=== PATIENT | male | born 1955 | race Caucasian/White ===

== ENCOUNTER 2017-07-01 16:17 | Inpatient (IN) | payer BC ==
[~2017-07-01] VITALS: Ht 167.6 cm; Wt 91.2 kg
[2017-07-01] MEDS ORDERED: METF500T4 PO (16:32)
[2017-07-01 16:42] LABS: GLUCOSE,POINT OF CARE 282 MG/DL (70-110)
[2017-07-01] MEDS ORDERED: SODIUM CHLORIDE 0.9% 1,000 ML IV ONE (17:00)
[2017-07-01] MEDS ORDERED: INSULIN REGULAR, HUMAN 100 UNITS/ML IVP ONE (17:00)
[2017-07-01] MEDS ORDERED: VANCOMYCIN HCL 1 GM/D5% WATER 200 ML IV ONE (17:00)
[2017-07-01 17:21] LABS: BASOPHILS % (AUTO) 0.3 % (0.0-2.0); HEMATOCRIT 40.9 % (41-53); HEMOGLOBIN 13.9 g/dL (13.5-17.5); LYMPHOCYTES # (AUTO) 1.2 K/uL (1.0-4.8); LYMPHOCYTES % (AUTO) 11.3 % (22.0-44.0); MEAN CORPUSCULAR HGB CONC 33.9 G/dL (31.0-37.0); MEAN CORPUSCULAR VOLUME 83 fL (80-100); MONOCYTES # (AUTO) 0.8 K/uL (0.1-1.0); MONOCYTES % (AUTO) 7.2 % (2.0-9.0); NEUTROPHILS # (AUTO) 8.5 K/uL (1.8-7.7); NEUTROPHILS % (AUTO) 78.2 % (40.0-70.0); PLATELET COUNT (AUTO) 274 K/uL (150-450); RED BLOOD CELL COUNT(AUTO) 4.96 MIL/uL (4.50-5.90); RED CELL DISTRIBUTION WIDTH 13.7 % (11.5-14.5); WHITE BLOOD COUNT (AUTO) 10.9 K/uL (4.5-11.0)
[2017-07-01 17:30] LABS: CALCIUM, TOTAL 9.1 mg/dL (8.8-10.5); CREATININE 1.41 mg/dL (0.60-1.30)
[2017-07-01 17:33] LABS: ALBUMIN 3.6 g/dL (3.4-5.0); BILIRUBIN,TOTAL 0.5 mg/dL (0.1-1.0); TOTAL PROTEIN, SERUM 8.4 g/dL (6.4-8.2)
[2017-07-01] MEDS ORDERED: INSULIN ASPART 100 UNITS/ML SQ PRN (18:00)
[2017-07-01] MEDS ORDERED: DEXTROSE 50%-WATER 25 GM/50 ML SYRINGE IVP PRN (18:00)
[2017-07-01] MEDS ORDERED: ONDANSETRON HCL 4 MG/2 ML VIAL IVP PRN (18:00)
[2017-07-01] MEDS ORDERED: 0.9% SODIUM CHLORIDE 10 ML SYRINGE IVP PRN (18:00)
[2017-07-01 18:40] VITALS: BP 141/78
[2017-07-01 19:02] LABS: GLUCOSE,POINT OF CARE 155 MG/DL (70-110)
[2017-07-01] MEDS: ACETAMINOPHEN 325 MG TABLET PO PRN (19:31)
[2017-07-01] MEDS ORDERED: ZOLPIDEM TARTRATE 5 MG TABLET PO PRN (20:15)
[2017-07-01] MEDS: TraMADol HCL 50 MG TABLET PO PRN (21:33)
[2017-07-01] MEDS ORDERED: PNEUMOCOCCAL VACCINE POLYVALENT 0.5 ML VIAL [PPSV23] IM ONE (22:15)
[2017-07-02] VITALS (7 sets, daily range): BP systolic 109–143; BP diastolic 56–84
[2017-07-02] MEDS: ACETAMINOPHEN 325 MG TABLET PO PRN (00:11)
[2017-07-02 01:44] LABS: APPEARANCE,URINE CLEAR (CLEAR); GLUCOSE, URINE (UA) NEGATIVE (NEGATIVE); KETONES,URINE NEGATIVE (NEGATIVE); LEUKOCYTE ESTERASE ,URINE NEGATIVE (NEGATIVE); OCCULT BLOOD,URINE NEGATIVE (NEGATIVE); PH,URINE 5.5 (5.0-8.0); PROTEIN,URINE TRACE (NEGATIVE)
[2017-07-02 03:13] LABS: RBC,URINE 0-2 /HPF (0-2); SQUAMOUS EPITHELIAL CELL,UR Few /LPF (None Seen); WBC,URINE 0-2 /HPF (0-5)
[2017-07-02 06:12] LABS: PROTHROMBIN TIME 10.4 SEC (9.4-11.6)
[2017-07-02 06:46] LABS: ALBUMIN 2.9 g/dL (3.4-5.0); BILIRUBIN,TOTAL 0.2 mg/dL (0.1-1.0); CALCIUM, TOTAL 8.4 mg/dL (8.8-10.5); CHOL/HDL RATIO 5.4 (4.2-7.3); CREATININE 1.32 mg/dL (0.60-1.30); MAGNESIUM 1.7 mg/dL (1.80-2.40); PHOSPHORUS 3.5 mg/dL (2.5-4.9); POTASSIUM 3.3 mmol/L (3.5-5.1); THYROID STIMULATING HORMONE 2.92 uIU/mL (0.36-3.74); TOTAL PROTEIN, SERUM 6.8 g/dL (6.4-8.2)
[2017-07-02 06:54] LABS: BASOPHILS % (AUTO) 0.8 % (0.0-2.0); EOSINOPHILS % (AUTO) 5.5 % (1.0-6.0); HEMATOCRIT 36.6 % (41-53); HEMOGLOBIN 12.5 g/dL (13.5-17.5); LYMPHOCYTES # (AUTO) 1.5 K/uL (1.0-4.8); LYMPHOCYTES % (AUTO) 19.4 % (22.0-44.0); MEAN CORPUSCULAR HEMOGLOBIN 28.3 pg (26.0-34.0); MEAN CORPUSCULAR HGB CONC 34.3 G/dL (31.0-37.0); MEAN CORPUSCULAR VOLUME 82 fL (80-100); MONOCYTES # (AUTO) 0.6 K/uL (0.1-1.0); MONOCYTES % (AUTO) 8.3 % (2.0-9.0); PLATELET COUNT (AUTO) 227 K/uL (150-450); RED BLOOD CELL COUNT(AUTO) 4.44 MIL/uL (4.50-5.90); RED CELL DISTRIBUTION WIDTH 13.6 % (11.5-14.5); WHITE BLOOD COUNT (AUTO) 7.6 K/uL (4.5-11.0)
[2017-07-02] MEDS: VANCOMYCIN HCL 1 GM/D5% WATER 200 ML IV SCH ×2 (07:43→20:07)
[2017-07-02] MEDS: PANTOPRAZOLE SODIUM 40 MG DR TABLET PO SCH (08:00)
[2017-07-02] MEDS: SIMVASTATIN 20 MG TABLET PO SCH (08:00)
[2017-07-02] MEDS: LOSARTAN POTASSIUM 50 MG TABLET PO SCH (08:00)
[2017-07-02] MEDS: ENOXAPARIN SODIUM 30 MG/0.3 ML PF SYRINGE SQ SCH (08:01)
[2017-07-02 08:05] LABS: ERYTHROCYTE SEDIMENTATION RATE 61 MM/HR (0-15)
[2017-07-02] MEDS: INSULIN DETEMIR 100 UNITS/ML SQ SCH ×2 (08:06→20:56)
[2017-07-02] MEDS ORDERED: PANTOPRAZOLE SODIUM 40 MG DR TABLET PO SCH (09:00)
[2017-07-02 10:12] LABS: GLUCOSE COMMENT 1 Received Meds; GLUCOSE,POINT OF CARE 149 MG/DL (70-110)
[2017-07-02 10:19] LABS: GLUCOSE,POINT OF CARE 131 MG/DL (70-110)
[2017-07-02 10:19] LABS: GLUCOSE COMMENT 1 Received Meds; GLUCOSE,POINT OF CARE 185 MG/DL (70-110)
[2017-07-02] MEDS: TraMADol HCL 50 MG TABLET PO PRN ×2 (10:49→22:42)
[2017-07-02] MEDS ORDERED: DEXTROSE 50%-WATER 25 GM/50 ML SYRINGE IVP PRN (11:45)
[2017-07-02] MEDS: INSULIN ASPART 100 UNITS/ML SQ PRN ×3 (12:00→20:57)
[2017-07-02 14:02] LABS: GLUCOSE COMMENT 1 Received Meds; GLUCOSE,POINT OF CARE 180 MG/DL (70-110)
[2017-07-02 18:02] LABS: GLUCOSE COMMENT 1 Received Meds; GLUCOSE,POINT OF CARE 152 MG/DL (70-110)
[2017-07-02] MEDS ORDERED: POTASSIUM CHLORIDE 20 MEQ ER TABLET PO ONE (19:45)
[2017-07-02] MEDS ORDERED: MAGNESIUM SULFATE 1 GM in DEXTROSE 5%-WATER 50 ML IV ONE (20:00)
[2017-07-03 00:47] LABS: GLUCOSE COMMENT 1 Received Meds; GLUCOSE,POINT OF CARE 160 MG/DL (70-110)
[2017-07-03 04:40] VITALS: BP 112/68
[2017-07-03 06:23] LABS: GLUCOSE,POINT OF CARE 121 MG/DL (70-110)
[2017-07-03 06:50] LABS: ANION GAP 7 mmol/L (8-16); CALCIUM, TOTAL 9.1 mg/dL (8.8-10.5); CARBON DIOXIDE 30 mmol/L (22-29); CHLORIDE 102 mmol/L (98-107); CREATININE 1.19 mg/dL (0.60-1.30); GLOMERULAR FILTR. RATE CALC > 60 mL/min (>60); POTASSIUM 4.3 mmol/L (3.5-5.1); SODIUM SERUM 139 mmol/L (136-145); UREA NITROGEN, BLOOD 10 mg/dL (7-18)
[2017-07-03 07:48] VITALS: BP 147/72
[2017-07-03 07:55] LABS: HEPATITIS C AB SCREEN <0.1 s/co ratio (0.0-0.9)
[2017-07-03] MEDS ORDERED: VANCOMYCIN HCL 1.25 GM in DEXTROSE 5%-WATER 250 ML IV SCH (08:00)
[2017-07-03 08:07] LABS: PSA FREE 0.04 ng/mL
[2017-07-03] MEDS: PANTOPRAZOLE SODIUM 40 MG DR TABLET PO SCH (08:07)
[2017-07-03] MEDS: LOSARTAN POTASSIUM 50 MG TABLET PO SCH (08:07)
[2017-07-03] MEDS: SIMVASTATIN 20 MG TABLET PO SCH (08:07)
[2017-07-03] MEDS: ENOXAPARIN SODIUM 30 MG/0.3 ML PF SYRINGE SQ SCH (08:08)
[2017-07-03] MEDS: INSULIN DETEMIR 100 UNITS/ML SQ SCH (08:16)
[2017-07-03 08:22] LABS: GLUCOSE COMMENT 1 Received Meds; GLUCOSE,POINT OF CARE 120 MG/DL (70-110)
[2017-07-03 11:17] VITALS: BP 159/94
[2017-07-03] MEDS: TraMADol HCL 50 MG TABLET PO PRN (11:41)
[2017-07-03 11:53] LABS: GLUCOSE COMMENT 1 Received Meds; GLUCOSE,POINT OF CARE 172 MG/DL (70-110)
[2017-07-03] MEDS: INSULIN ASPART 100 UNITS/ML SQ PRN (12:04)
== END 2017-07-03 14:55 | disposition short-term general hospital (02) | DRG 603 ==
LOC: EMS 16:19 → 6N 17:12
PROVIDERS: ADMIT Internal Medicine; ATTEND Internal Medicine
DX: L03.116 Cellulitis of left lower limb (principal); E11.22 Type 2 diabetes mellitus with diabetic chronic kidney disease; R78.81 Bacteremia; I13.10 Hypertensive heart and chronic kidney disease without heart failure, with stage 1 through stage 4 chronic kidney disease, or unspecified chronic kidney disease; E11.42 Type 2 diabetes mellitus with diabetic polyneuropathy; E11.621 Type 2 diabetes mellitus with foot ulcer; L97.529 Non-pressure chronic ulcer of other part of left foot with unspecified severity; E11.65 Type 2 diabetes mellitus with hyperglycemia; E55.9 Vitamin D deficiency, unspecified; E78.2 Mixed hyperlipidemia; M19.90 Unspecified osteoarthritis, unspecified site; N18.9 Chronic kidney disease, unspecified; Z83.3 Family history of diabetes mellitus; Z22.322 Carrier or suspected carrier of Methicillin resistant Staphylococcus aureus
CPT/HCPCS: 73718; 82306; 82607; 82746; 82962; 83036; 83735; 84100; 84154; 84443; 85651; 86140; 86706; 86803; 87040; 87070; 87081; 87147; 87205; 87340; 96365; 96375; 99285; J1650; J1815; J3370; J3475; J7030; J7060

== ENCOUNTER 2017-08-12 02:42 | Inpatient (IN) | payer BC ==
[~2017-08-12] VITALS: Ht 175.3 cm; Wt 81.5 kg
[~2017-08-12 02:42] MED LIST: METF500T4 PO
[2017-08-12] MEDS ORDERED: GABA-531 PO (02:55)
[2017-08-12] MEDS ORDERED: HYDR-4061 PO (02:55)
[2017-08-12] MEDS ORDERED: LISI-660 PO (02:55)
[2017-08-12] MEDS ORDERED: SULF1TAB42 PO (02:55)
[2017-08-12 02:57] LABS: GLUCOSE,POINT OF CARE 213 MG/DL (70-110)
[2017-08-12] MEDS ORDERED: VANCOMYCIN HCL 1 GM/D5% WATER 200 ML IV ONE (04:30)
[2017-08-12] MEDS ORDERED: PIPERACILLIN/TAZO 3.375 GM/D5W 50 ML IV ONE (04:30)
[2017-08-12] MEDS ORDERED: MORPHINE SULFATE 4 MG/ML SYRINGE IVP ONE (04:30)
[2017-08-12] MEDS ORDERED: ONDANSETRON HCL 4 MG/2 ML VIAL IVP ONE (04:30)
[2017-08-12] MEDS ORDERED: KETOROLAC TROMETHAMINE 30 MG/ML VIAL IVP ONE (05:00)
[2017-08-12] MEDS ORDERED: HYDROmorphone 2 MG/ML SYRINGE IVP ONE (05:00)
[2017-08-12 05:04] LABS: BASOPHILS % (AUTO) 0.7 % (0.0-2.0); EOSINOPHILS % (AUTO) 7.5 % (1.0-6.0); HEMATOCRIT 33.8 % (41-53); HEMOGLOBIN 11.6 g/dL (13.5-17.5); LYMPHOCYTES # (AUTO) 1.7 K/uL (1.0-4.8); LYMPHOCYTES % (AUTO) 22.7 % (22.0-44.0); MEAN CORPUSCULAR HGB CONC 34.3 G/dL (31.0-37.0); MEAN CORPUSCULAR VOLUME 82 fL (80-100); MONOCYTES # (AUTO) 0.6 K/uL (0.1-1.0); MONOCYTES % (AUTO) 7.5 % (2.0-9.0); NEUTROPHILS # (AUTO) 4.7 K/uL (1.8-7.7); NEUTROPHILS % (AUTO) 61.6 % (40.0-70.0); PLATELET COUNT (AUTO) 287 K/uL (150-450); RED BLOOD CELL COUNT(AUTO) 4.14 MIL/uL (4.50-5.90); RED CELL DISTRIBUTION WIDTH 13.7 % (11.5-14.5); WHITE BLOOD COUNT (AUTO) 7.7 K/uL (4.5-11.0)
[2017-08-12 05:09] LABS: CALCIUM, TOTAL 8.9 mg/dL (8.8-10.5); CREATININE 1.27 mg/dL (0.60-1.30); POTASSIUM 3.8 mmol/L (3.5-5.1)
[2017-08-12 05:15] LABS: ALBUMIN 3.2 g/dL (3.4-5.0); BILIRUBIN,TOTAL 0.2 mg/dL (0.1-1.0)
[2017-08-12 06:10] LABS: ERYTHROCYTE SEDIMENTATION RATE 75 MM/HR (0-15)
[2017-08-12] MEDS ORDERED: ACETAMINOPHEN 325 MG TABLET PO PRN (06:15)
[2017-08-12] MEDS ORDERED: ZOLPIDEM TARTRATE 5 MG TABLET PO PRN (06:15)
[2017-08-12] MEDS ORDERED: MORPHINE SULFATE 4 MG/ML SYRINGE IVP PRN (06:15)
[2017-08-12] MEDS ORDERED: MAGNESIUM HYDROXIDE SUSPENSION 30 ML UDCUP PO PRN ×2 (06:15→17:30)
[2017-08-12] MEDS ORDERED: HYDROCODONE/ACETAMINOPHEN 5-325 MG TABLET PO PRN (06:15)
[2017-08-12] MEDS ORDERED: LISINOPRIL 10 MG TABLET PO ONE (07:00)
[2017-08-12 07:33] LABS: GLUCOSE,POINT OF CARE 137 MG/DL (70-110)
[2017-08-12 07:58] VITALS: BP 147/97
[2017-08-12] MEDS ORDERED: DOCUSATE SODIUM 100 MG CAPSULE PO SCH (09:00)
[2017-08-12] MEDS ORDERED: ENOXAPARIN SODIUM 40 MG/0.4 ML PF SYRINGE SQ SCH (09:00)
[2017-08-12] MEDS ORDERED: PANTOPRAZOLE SODIUM 40 MG/VIAL IVP SCH (09:00)
[2017-08-12] MEDS: MetFORMIN HCL 500 MG TABLET PEG SCH ×2 (09:17→17:52)
[2017-08-12] MEDS: GABAPENTIN 300 MG CAPSULE PO SCH ×2 (09:17→16:32)
[2017-08-12 11:04] VITALS: BP 112/53
[2017-08-12 12:18] LABS: GLUCOSE,POINT OF CARE 154 MG/DL (70-110)
[2017-08-12] MEDS ORDERED: PIPERACILLIN/TAZO 3.375 GM/D5W 50 ML IV SCH (14:00)
[2017-08-12] MEDS ORDERED: SODIUM CHLORIDE 0.9% 500 ML IV ONE (14:23)
[2017-08-12] MEDS ORDERED: INFLUENZA VIRUS VACCINE QVS 2017-18 (3YR+)/PF 60 MCG/0.5 ML SYRINGE IM ONE (15:30)
[2017-08-12 16:00] VITALS: BP 139/76
[2017-08-12] MEDS ORDERED: MAGNESIUM SULFATE 2 GM in DEXTROSE 5%-WATER 50 ML IV PRN (17:30)
[2017-08-12] MEDS ORDERED: ACETAMINOPHEN 650 MG/20.3 ML SOLUTION UDCUP PO PRN (17:30)
[2017-08-12] MEDS ORDERED: POTASSIUM CHL 10 MEQ/WATER 50 ML IV PRN (17:30)
[2017-08-12] MEDS ORDERED: DEXTROSE 50%-WATER 25 GM/50 ML SYRINGE IVP PRN (17:30)
[2017-08-12] MEDS ORDERED: POTASSIUM CHLORIDE 20 MEQ ER TABLET PO PRN (17:30)
[2017-08-12] MEDS ORDERED: 0.9% SODIUM CHLORIDE 10 ML SYRINGE IVP PRN (17:30)
[2017-08-12] MEDS ORDERED: ONDANSETRON HCL 4 MG/2 ML VIAL IVP PRN (17:30)
[2017-08-12] MEDS: OxyCODONE HCL/ACETAMINOPHEN 5-325 MG TABLET PO PRN (17:52)
[2017-08-12 18:23] LABS: GLUCOSE,POINT OF CARE 88 MG/DL (70-110)
[2017-08-12 18:45] LABS: BASOPHILS % (AUTO) 0.3 % (0.0-2.0); EOSINOPHILS % (AUTO) 3.7 % (1.0-6.0); HEMATOCRIT 38.1 % (41-53); HEMOGLOBIN 12.7 g/dL (13.5-17.5); LYMPHOCYTES # (AUTO) 1.2 K/uL (1.0-4.8); LYMPHOCYTES % (AUTO) 9.3 % (22.0-44.0); MEAN CORPUSCULAR HEMOGLOBIN 27.8 pg (26.0-34.0); MEAN CORPUSCULAR HGB CONC 33.4 G/dL (31.0-37.0); MEAN CORPUSCULAR VOLUME 83 fL (80-100); MONOCYTES # (AUTO) 0.6 K/uL (0.1-1.0); NEUTROPHILS # (AUTO) 10.1 K/uL (1.8-7.7); NEUTROPHILS % (AUTO) 81.7 % (40.0-70.0); PLATELET COUNT (AUTO) 314 K/uL (150-450); RED BLOOD CELL COUNT(AUTO) 4.58 MIL/uL (4.50-5.90); RED CELL DISTRIBUTION WIDTH 13.9 % (11.5-14.5); WHITE BLOOD COUNT (AUTO) 12.4 K/uL (4.5-11.0)
[2017-08-12 18:51] LABS: ALBUMIN 3.4 g/dL (3.4-5.0); CALCIUM, TOTAL 8.7 mg/dL (8.8-10.5); CREATININE 1.62 mg/dL (0.60-1.30); POTASSIUM 4.9 mmol/L (3.5-5.1)
[2017-08-12 19:22] VITALS: BP 121/75
[2017-08-12 20:16] LABS: ERYTHROCYTE SEDIMENTATION RATE 82 MM/HR (0-15)
[2017-08-12] MEDS: HYDROCODONE/ACETAMINOPHEN 5-325 MG TABLET PO PRN (20:51)
[2017-08-12] MEDS: DOCUSATE SODIUM 100 MG CAPSULE PO SCH (20:51)
[2017-08-12] MEDS: HEPARIN SODIUM,PORCINE 5,000 UNITS/ML VIAL SQ SCH (20:52)
[2017-08-12] MEDS: INSULIN REGULAR, HUMAN 100 UNITS/ML SQ PRN (20:59)
[2017-08-12 22:03] LABS: GLUCOSE,POINT OF CARE 144 MG/DL (70-110)
[2017-08-12 23:11] VITALS: BP 114/68
[2017-08-13] MEDS ORDERED: HEPARIN SODIUM,PORCINE 5,000 UNITS/ML VIAL SQ SCH
[2017-08-13 04:00] VITALS: BP 119/60
[2017-08-13] MEDS ORDERED: VANCOMYCIN HCL 1 GM/D5% WATER 200 ML IV ONE (06:00)
[2017-08-13 08:02] VITALS: BP 117/71
[2017-08-13] MEDS ORDERED: GADOBUTROL 1 MMOL/ML 10 ML VIAL IVP ONE (08:30)
[2017-08-13 09:40] LABS: BASOPHILS # (AUTO) 0.02 K/uL (0.00-0.20); BASOPHILS % (AUTO) 0.2 % (0.0-2.0); EOSINOPHILS # (AUTO) 0.56 K/uL (0.00-0.70); EOSINOPHILS % (AUTO) 6.27 % (1.0-6.0); HEMATOCRIT 35.9 % (41-53); LYMPHOCYTES # (AUTO) 0.8 K/uL (1.0-4.8); LYMPHOCYTES % (AUTO) 8.5 % (22.0-44.0); MEAN CORPUSCULAR HEMOGLOBIN 27.7 pg (26.0-34.0); MEAN CORPUSCULAR HGB CONC 33.3 G/dL (31.0-37.0); MEAN CORPUSCULAR VOLUME 83 fL (80-100); MONOCYTES # (AUTO) 0.4 K/uL (0.1-1.0); MONOCYTES % (AUTO) 4.2 % (2.0-9.0); NEUTROPHILS # (AUTO) 7.2 K/uL (1.8-7.7); NEUTROPHILS % (AUTO) 80.8 % (40.0-70.0); PLATELET COUNT (AUTO) 253 K/uL (150-450); RED BLOOD CELL COUNT(AUTO) 4.33 MIL/uL (4.50-5.90); RED CELL DISTRIBUTION WIDTH 13.8 % (11.5-14.5)
[2017-08-13 09:50] LABS: HEMOGLOBIN A1C 7.3 % (4.5-6.2)
[2017-08-13 09:56] LABS: BILIRUBIN,TOTAL 0.3 mg/dL (0.1-1.0); CALCIUM, TOTAL 8.8 mg/dL (8.8-10.5); CHOL/HDL RATIO 6.6 (4.2-7.3); CREATININE 1.53 mg/dL (0.60-1.30); MAGNESIUM 1.6 mg/dL (1.80-2.40); POTASSIUM 4.4 mmol/L (3.5-5.1); TOTAL PROTEIN, SERUM 7.8 g/dL (6.4-8.2)
[2017-08-13] MEDS: DOCUSATE SODIUM 100 MG CAPSULE PO SCH ×2 (09:57→21:19)
[2017-08-13] MEDS: HEPARIN SODIUM,PORCINE 5,000 UNITS/ML VIAL SQ SCH ×2 (09:57→21:18)
[2017-08-13] MEDS: OxyCODONE HCL/ACETAMINOPHEN 5-325 MG TABLET PO PRN ×3 (09:57→21:19)
[2017-08-13] MEDS: MAGNESIUM OXIDE 400 MG TABLET PO PRN ×3 (11:30→21:19)
[2017-08-13 12:04] VITALS: BP 135/80
[2017-08-13] MEDS: HYDROCODONE/ACETAMINOPHEN 5-325 MG TABLET PO PRN (13:35)
[2017-08-13 15:00] VITALS: BP 132/76
[2017-08-13 17:38] LABS: GLUCOSE,POINT OF CARE 108 MG/DL (70-110)
[2017-08-13 17:46] LABS: APPEARANCE,URINE CLEAR (CLEAR); GLUCOSE, URINE (UA) NEGATIVE (NEGATIVE); KETONES,URINE NEGATIVE (NEGATIVE); LEUKOCYTE ESTERASE ,URINE NEGATIVE (NEGATIVE); OCCULT BLOOD,URINE NEGATIVE (NEGATIVE); PROTEIN,URINE NEGATIVE (NEGATIVE)
[2017-08-13 17:55] LABS: SQUAMOUS EPITHELIAL CELL,UR Few /LPF (None Seen)
[2017-08-13 17:56] LABS: COARSE GRANULAR CASTS,URINE 0-2 /LPF (None Seen)
[2017-08-13 17:58] LABS: RBC,URINE 0-2 /HPF (0-2); WBC,URINE 0-2 /HPF (0-5)
[2017-08-13] MEDS ORDERED: PIPERACILLIN/TAZO 3.375 GM/D5W 50 ML IV SCH ×2 (18:00→23:00)
[2017-08-13 19:57] VITALS: BP 114/69
[2017-08-13 21:17] LABS: GLUCOSE,POINT OF CARE 120 MG/DL (70-110)
[2017-08-13] MEDS ORDERED: VANCOMYCIN HCL 1.5 GM in DEXTROSE 5%-WATER 250 ML IV ONE (23:00)
[2017-08-13 23:16] VITALS: BP 129/83
[2017-08-14 01:12] LABS: GLUCOSE COMMENT 1 Juice/Food/D50 Given; GLUCOSE,POINT OF CARE 141 MG/DL (70-110)
[2017-08-14] MEDS: OxyCODONE HCL/ACETAMINOPHEN 5-325 MG TABLET PO PRN ×3 (01:26→17:39)
[2017-08-14 05:23] VITALS: BP 131/75
[2017-08-14 06:00] LABS: CREATININE 1.43 mg/dL (0.60-1.30); POTASSIUM 4.8 mmol/L (3.5-5.1)
[2017-08-14 06:22] LABS: PROCALCITONIN (PCT) 0.08 ng/mL (<0.50)
[2017-08-14 07:08] LABS: GLUCOSE COMMENT 1 Juice/Food/D50 Given; GLUCOSE,POINT OF CARE 120 MG/DL (70-110)
[2017-08-14 07:36] VITALS: BP 138/59
[2017-08-14] MEDS: HEPARIN SODIUM,PORCINE 5,000 UNITS/ML VIAL SQ SCH (08:07)
[2017-08-14] MEDS: VANCOMYCIN HCL 750 MG in DEXTROSE 5%-WATER 150 ML IV SCH ×2 (08:07→19:47)
[2017-08-14] MEDS: DOCUSATE SODIUM 100 MG CAPSULE PO SCH ×2 (08:07→19:46)
[2017-08-14 11:03] VITALS: BP 125/70
[2017-08-14] MEDS: INSULIN REGULAR, HUMAN 100 UNITS/ML SQ PRN ×2 (11:11→20:42)
[2017-08-14 12:33] LABS: GLUCOSE COMMENT 1 Received Meds; GLUCOSE,POINT OF CARE 152 MG/DL (70-110)
[2017-08-14 15:24] VITALS: BP 110/68
[2017-08-14 17:13] LABS: GLUCOSE,POINT OF CARE 128 MG/DL (70-110)
[2017-08-14 19:36] VITALS: BP 142/75
[2017-08-14] MEDS: HYDROCODONE/ACETAMINOPHEN 5-325 MG TABLET PO PRN (19:46)
[2017-08-14 23:11] VITALS: BP 125/63
[2017-08-14 23:52] LABS: GLUCOSE COMMENT 1 Received Meds; GLUCOSE,POINT OF CARE 198 MG/DL (70-110)
[2017-08-15] VITALS (7 sets, daily range): BP systolic 129–147; BP diastolic 74–97
[2017-08-15] MEDS: HYDROCODONE/ACETAMINOPHEN 5-325 MG TABLET PO PRN ×2 (05:54→12:34)
[2017-08-15 06:43] LABS: GLUCOSE,POINT OF CARE 112 MG/DL (70-110)
[2017-08-15] MEDS ORDERED: SODIUM CHLORIDE 0.9% 1,000 ML IV ONE ×2 (06:48→08:52)
[2017-08-15] MEDS ORDERED: LIDOCAINE HCL/PF 1% 30 ML VIAL ONE (06:48)
[2017-08-15] MEDS ORDERED: BUPIVACAINE HCL/PF 0.5% 30 ML VIAL ONE (06:48)
[2017-08-15 06:55] LABS: BASOPHILS # (AUTO) 0.05 K/uL (0.00-0.20); BASOPHILS % (AUTO) 0.8 % (0.0-2.0); EOSINOPHILS # (AUTO) 0.64 K/uL (0.00-0.70); EOSINOPHILS % (AUTO) 10.08 % (1.0-6.0); HEMATOCRIT 35.2 % (41-53); HEMOGLOBIN 11.6 g/dL (13.5-17.5); LYMPHOCYTES # (AUTO) 1.4 K/uL (1.0-4.8); LYMPHOCYTES % (AUTO) 21.7 % (22.0-44.0); MEAN CORPUSCULAR HEMOGLOBIN 27.7 pg (26.0-34.0); MEAN CORPUSCULAR VOLUME 84 fL (80-100); MONOCYTES # (AUTO) 0.5 K/uL (0.1-1.0); MONOCYTES % (AUTO) 7.4 % (2.0-9.0); NEUTROPHILS # (AUTO) 3.8 K/uL (1.8-7.7); PLATELET COUNT (AUTO) 247 K/uL (150-450); RED BLOOD CELL COUNT(AUTO) 4.19 MIL/uL (4.50-5.90); RED CELL DISTRIBUTION WIDTH 14.6 % (11.5-14.5); WHITE BLOOD COUNT (AUTO) 6.3 K/uL (4.5-11.0)
[2017-08-15 07:15] LABS: CREATININE 1.34 mg/dL (0.60-1.30); POTASSIUM 4.5 mmol/L (3.5-5.1)
[2017-08-15] MEDS ORDERED: SODIUM CHLORIDE 0.9% 10 ML ONE (08:51)
[2017-08-15] MEDS ORDERED: BACITRACIN 50,000 UNITS/VIAL ONE (08:52)
[2017-08-15] MEDS ORDERED: GELATIN SPONGE,ABSORBABLE 50 MM TP ONE (08:53)
[2017-08-15] MEDS ORDERED: THROMBIN, BOVINE 20000 UNITS/VIAL POWDER TP ONE (08:53)
[2017-08-15] MEDS: DOCUSATE SODIUM 100 MG CAPSULE PO SCH ×2 (09:00→20:23)
[2017-08-15] MEDS: VANCOMYCIN HCL 750 MG in DEXTROSE 5%-WATER 150 ML IV SCH ×2 (10:47→20:23)
[2017-08-15] MEDS: INSULIN REGULAR, HUMAN 100 UNITS/ML SQ PRN ×2 (11:43→17:11)
[2017-08-15] MEDS ORDERED: FentaNYL CITRATE-PF 100 MCG/2 ML VIAL IVP ONE (12:00)
[2017-08-15] MEDS ORDERED: DiphenhydrAMINE HCL 50 MG/ML VIAL IVP ONE (12:00)
[2017-08-15] MEDS ORDERED: MIDAZOLAM HCL 2 MG/2 ML VIAL IVP ONE (12:00)
[2017-08-15] MEDS ORDERED: LIDOCAINE HCL/PF 2% 5 ML SYRINGE IVP ONE (12:00)
[2017-08-15] MEDS ORDERED: PROPOFOL 1% 20 ML VIAL IVP ONE (12:00)
[2017-08-15 14:27] LABS: GLUCOSE,POINT OF CARE 114 MG/DL (70-110)
[2017-08-15] MEDS: OxyCODONE HCL/ACETAMINOPHEN 5-325 MG TABLET PO PRN (20:24)
[2017-08-15 21:02] LABS: GLUCOSE,POINT OF CARE 112 MG/DL (70-110)
[2017-08-16] MEDS: OxyCODONE HCL/ACETAMINOPHEN 5-325 MG TABLET PO PRN ×3 (00:23→14:53)
[2017-08-16 04:00] VITALS: BP 139/83
[2017-08-16 06:08] LABS: GLUCOSE COMMENT 1 Juice/Food/D50 Given; GLUCOSE,POINT OF CARE 128 MG/DL (70-110)
[2017-08-16 06:41] LABS: BASOPHILS % (AUTO) 0.7 % (0.0-2.0); EOSINOPHILS % (AUTO) 8.1 % (1.0-6.0); HEMATOCRIT 35.9 % (41-53); HEMOGLOBIN 12.2 g/dL (13.5-17.5); LYMPHOCYTES # (AUTO) 1.9 K/uL (1.0-4.8); LYMPHOCYTES % (AUTO) 24.2 % (22.0-44.0); MEAN CORPUSCULAR HEMOGLOBIN 28.2 pg (26.0-34.0); MEAN CORPUSCULAR HGB CONC 33.9 G/dL (31.0-37.0); MEAN CORPUSCULAR VOLUME 83 fL (80-100); MONOCYTES # (AUTO) 0.5 K/uL (0.1-1.0); MONOCYTES % (AUTO) 6.4 % (2.0-9.0); NEUTROPHILS # (AUTO) 4.9 K/uL (1.8-7.7); NEUTROPHILS % (AUTO) 60.6 % (40.0-70.0); PLATELET COUNT (AUTO) 314 K/uL (150-450); RED BLOOD CELL COUNT(AUTO) 4.31 MIL/uL (4.50-5.90); RED CELL DISTRIBUTION WIDTH 14.1 % (11.5-14.5)
[2017-08-16 07:09] LABS: ALBUMIN 3.2 g/dL (3.4-5.0); BILIRUBIN,TOTAL 0.3 mg/dL (0.1-1.0); CALCIUM, TOTAL 9.1 mg/dL (8.8-10.5); CREATININE 1.42 mg/dL (0.60-1.30); MAGNESIUM 1.9 mg/dL (1.80-2.40); POTASSIUM 4.5 mmol/L (3.5-5.1); TOTAL PROTEIN, SERUM 7.7 g/dL (6.4-8.2)
[2017-08-16 07:31] VITALS: BP 132/74
[2017-08-16] MEDS: VANCOMYCIN HCL 750 MG in DEXTROSE 5%-WATER 150 ML IV SCH ×2 (07:44→20:24)
[2017-08-16] MEDS: DOCUSATE SODIUM 100 MG CAPSULE PO SCH ×2 (07:45→20:24)
[2017-08-16] MEDS: HYDROCODONE/ACETAMINOPHEN 5-325 MG TABLET PO PRN (07:46)
[2017-08-16 08:23] LABS: GLUCOSE COMMENT 1 Juice/Food/D50 Given; GLUCOSE,POINT OF CARE 125 MG/DL (70-110)
[2017-08-16 11:20] VITALS: BP 135/76
[2017-08-16 11:23] LABS: GLUCOSE,POINT OF CARE 139 MG/DL (70-110)
[2017-08-16 15:47] VITALS: BP 136/83
[2017-08-16 17:38] LABS: GLUCOSE,POINT OF CARE 119 MG/DL (70-110)
[2017-08-16 19:28] VITALS: BP 122/76
[2017-08-16] MEDS: INSULIN REGULAR, HUMAN 100 UNITS/ML SQ PRN (20:32)
[2017-08-16 20:43] LABS: GLUCOSE,POINT OF CARE 173 MG/DL (70-110)
[2017-08-17 00:10] VITALS: BP 134/78
[2017-08-17 04:37] VITALS: BP 158/86
[2017-08-17 05:52] LABS: GLUCOSE,POINT OF CARE 116 MG/DL (70-110)
[2017-08-17 07:25] LABS: CALCIUM, TOTAL 9.8 mg/dL (8.8-10.5); CREATININE 1.33 mg/dL (0.60-1.30); POTASSIUM 4.4 mmol/L (3.5-5.1)
[2017-08-17] MEDS: VANCOMYCIN HCL 750 MG in DEXTROSE 5%-WATER 150 ML IV SCH ×2 (08:07→19:45)
[2017-08-17] MEDS: DOCUSATE SODIUM 100 MG CAPSULE PO SCH ×2 (08:08→19:43)
[2017-08-17 11:17] VITALS: BP 147/95
[2017-08-17] MEDS: INSULIN REGULAR, HUMAN 100 UNITS/ML SQ PRN ×2 (11:56→20:16)
[2017-08-17] MEDS: SitaGLIPtin PHOSPHATE 50 MG TABLET PO SCH (11:57)
[2017-08-17 12:53] LABS: GLUCOSE,POINT OF CARE 128 MG/DL (70-110)
[2017-08-17] MEDS: OxyCODONE HCL/ACETAMINOPHEN 5-325 MG TABLET PO PRN ×2 (14:49→19:43)
[2017-08-17 15:51] VITALS: BP 150/90
[2017-08-17 18:18] LABS: GLUCOSE,POINT OF CARE 115 MG/DL (70-110)
[2017-08-17 19:35] VITALS: BP 122/80
[2017-08-17 20:33] LABS: GLUCOSE COMMENT 1 Received Meds; GLUCOSE,POINT OF CARE 151 MG/DL (70-110)
[2017-08-17] MEDS ORDERED: SODIUM CHLORIDE 0.9% 500 ML IV ONE (23:09)
[2017-08-17 23:14] VITALS: BP 131/75
[2017-08-18 04:43] VITALS: BP 125/79
[2017-08-18] MEDS: OxyCODONE HCL/ACETAMINOPHEN 5-325 MG TABLET PO PRN (05:23)
[2017-08-18] MEDS: INSULIN REGULAR, HUMAN 100 UNITS/ML SQ PRN (05:24)
[2017-08-18 06:06] LABS: CALCIUM, TOTAL 9.5 mg/dL (8.8-10.5); CREATININE 1.37 mg/dL (0.60-1.30); POTASSIUM 3.8 mmol/L (3.5-5.1)
[2017-08-18 06:52] LABS: GLUCOSE COMMENT 1 Received Meds; GLUCOSE,POINT OF CARE 128 MG/DL (70-110)
[2017-08-18 07:13] VITALS: BP 131/76
[2017-08-18] MEDS: SitaGLIPtin PHOSPHATE 50 MG TABLET PO SCH (08:45)
[2017-08-18] MEDS: VANCOMYCIN HCL 750 MG in DEXTROSE 5%-WATER 150 ML IV SCH ×3 (08:45→20:00)
[2017-08-18] MEDS: DOCUSATE SODIUM 100 MG CAPSULE PO SCH ×2 (08:45→19:45)
[2017-08-18 11:11] VITALS: BP 136/80
[2017-08-18 11:43] LABS: GLUCOSE,POINT OF CARE 145 MG/DL (70-110)
[2017-08-18 15:30] VITALS: BP 124/58
[2017-08-18] MEDS: HYDROCODONE/ACETAMINOPHEN 5-325 MG TABLET PO PRN (15:34)
[2017-08-18 19:32] VITALS: BP 136/78
[2017-08-18 19:48] LABS: GLUCOSE,POINT OF CARE 123 MG/DL (70-110)
[2017-08-18 23:14] VITALS: BP 120/78
[2017-08-19 00:23] LABS: GLUCOSE,POINT OF CARE 141 MG/DL (70-110)
[2017-08-19 04:29] VITALS: BP 129/74
[2017-08-19 06:43] LABS: GLUCOSE,POINT OF CARE 120 MG/DL (70-110)
[2017-08-19 06:48] LABS: ALBUMIN 3.4 g/dL (3.4-5.0); CALCIUM, TOTAL 9.4 mg/dL (8.8-10.5); CREATININE 1.24 mg/dL (0.60-1.30)
[2017-08-19 07:18] VITALS: BP 125/80
[2017-08-19] MEDS: VANCOMYCIN HCL 750 MG in DEXTROSE 5%-WATER 150 ML IV SCH ×2 (08:00→20:06)
[2017-08-19] MEDS: SitaGLIPtin PHOSPHATE 50 MG TABLET PO SCH (08:43)
[2017-08-19] MEDS: DOCUSATE SODIUM 100 MG CAPSULE PO SCH ×2 (08:43→20:07)
[2017-08-19] MEDS: OxyCODONE HCL/ACETAMINOPHEN 5-325 MG TABLET PO PRN ×2 (08:46→21:47)
[2017-08-19 08:50] LABS: PROTHROMBIN TIME 10.6 SEC (9.4-11.6)
[2017-08-19 11:39] VITALS: BP 125/81
[2017-08-19 12:03] LABS: GLUCOSE,POINT OF CARE 93 MG/DL (70-110)
[2017-08-19 15:27] VITALS: BP 129/78
[2017-08-19] MEDS: HYDROCODONE/ACETAMINOPHEN 5-325 MG TABLET PO PRN (18:15)
[2017-08-19 18:18] LABS: GLUCOSE,POINT OF CARE 96 MG/DL (70-110)
[2017-08-19 19:31] VITALS: BP 130/50
[2017-08-19] MEDS: INSULIN REGULAR, HUMAN 100 UNITS/ML SQ PRN (20:12)
[2017-08-19 23:30] VITALS: BP 119/75
[2017-08-20 04:17] LABS: GLUCOSE COMMENT 1 Received Meds; GLUCOSE,POINT OF CARE 150 MG/DL (70-110)
[2017-08-20 04:43] VITALS: BP 115/75
[2017-08-20 06:22] LABS: GLUCOSE,POINT OF CARE 105 MG/DL (70-110)
[2017-08-20 07:39] VITALS: BP 139/73
[2017-08-20] MEDS: VANCOMYCIN HCL 750 MG in DEXTROSE 5%-WATER 150 ML IV SCH ×2 (07:49→20:29)
[2017-08-20] MEDS: SitaGLIPtin PHOSPHATE 50 MG TABLET PO SCH (07:50)
[2017-08-20] MEDS: DOCUSATE SODIUM 100 MG CAPSULE PO SCH ×2 (07:50→20:29)
[2017-08-20] MEDS: OxyCODONE HCL/ACETAMINOPHEN 5-325 MG TABLET PO PRN ×3 (07:51→20:43)
[2017-08-20 09:02] LABS: CALCIUM, TOTAL 9.4 mg/dL (8.8-10.5); CREATININE 1.32 mg/dL (0.60-1.30); POTASSIUM 4.5 mmol/L (3.5-5.1)
[2017-08-20] MEDS ORDERED: SODIUM CHLORIDE 0.9% 500 ML IV ONE (11:36)
[2017-08-20] MEDS: HYDROmorphone 2 MG/ML SYRINGE IVP PRN (11:56)
[2017-08-20 12:48] LABS: GLUCOSE,POINT OF CARE 106 MG/DL (70-110)
[2017-08-20 16:23] VITALS: BP 130/77
[2017-08-20] MEDS: INSULIN REGULAR, HUMAN 100 UNITS/ML SQ PRN ×2 (18:16→20:47)
[2017-08-20 19:17] VITALS: BP 124/77
[2017-08-20 20:12] LABS: GLUCOSE COMMENT 1 Received Meds; GLUCOSE,POINT OF CARE 158 MG/DL (70-110)
[2017-08-20 21:13] LABS: GLUCOSE,POINT OF CARE 142 MG/DL (70-110)
[2017-08-20 23:44] VITALS: BP 125/74
[2017-08-21] MEDS: OxyCODONE HCL/ACETAMINOPHEN 5-325 MG TABLET PO PRN ×4 (00:49→21:29)
[2017-08-21] MEDS: ZOLPIDEM TARTRATE 5 MG TABLET PO PRN ×2 (00:52→21:29)
[2017-08-21 05:00] VITALS: BP 145/80
[2017-08-21 05:37] LABS: GLUCOSE,POINT OF CARE 109 MG/DL (70-110)
[2017-08-21 06:03] LABS: CALCIUM, TOTAL 9.2 mg/dL (8.8-10.5); CREATININE 1.26 mg/dL (0.60-1.30); POTASSIUM 4.2 mmol/L (3.5-5.1)
[2017-08-21] MEDS: DOCUSATE SODIUM 100 MG CAPSULE PO SCH ×2 (08:12→20:26)
[2017-08-21] MEDS: SitaGLIPtin PHOSPHATE 50 MG TABLET PO SCH (08:12)
[2017-08-21] MEDS: VANCOMYCIN HCL 750 MG in DEXTROSE 5%-WATER 150 ML IV SCH ×2 (08:15→20:26)
[2017-08-21 08:24] VITALS: BP 124/70
[2017-08-21 11:51] VITALS: BP 120/67
[2017-08-21] MEDS: HYDROCODONE/ACETAMINOPHEN 5-325 MG TABLET PO PRN (13:52)
[2017-08-21 15:00] VITALS: BP 125/67
[2017-08-21 17:57] LABS: GLUCOSE,POINT OF CARE 123 MG/DL (70-110)
[2017-08-21 18:57] LABS: GLUCOSE,POINT OF CARE 111 MG/DL (70-110)
[2017-08-21 19:35] VITALS: BP 136/86
[2017-08-21] MEDS: INSULIN REGULAR, HUMAN 100 UNITS/ML SQ PRN (20:33)
[2017-08-21 22:03] LABS: GLUCOSE,POINT OF CARE 163 MG/DL (70-110)
[2017-08-21 23:03] VITALS: BP 121/86
[2017-08-22] MEDS: OxyCODONE HCL/ACETAMINOPHEN 5-325 MG TABLET PO PRN ×3 (01:28→15:56)
[2017-08-22 05:07] VITALS: BP 117/94
[2017-08-22] MEDS: HYDROCODONE/ACETAMINOPHEN 5-325 MG TABLET PO PRN (05:21)
[2017-08-22 06:18] LABS: GLUCOSE,POINT OF CARE 101 MG/DL (70-110)
[2017-08-22 06:45] LABS: CALCIUM, TOTAL 9.4 mg/dL (8.8-10.5); CREATININE 1.33 mg/dL (0.60-1.30); POTASSIUM 4.5 mmol/L (3.5-5.1)
[2017-08-22 07:36] VITALS: BP 113/55
[2017-08-22] MEDS: DOCUSATE SODIUM 100 MG CAPSULE PO SCH (08:26)
[2017-08-22] MEDS: SitaGLIPtin PHOSPHATE 50 MG TABLET PO SCH (08:26)
[2017-08-22] MEDS: VANCOMYCIN HCL 750 MG in DEXTROSE 5%-WATER 150 ML IV SCH (08:27)
[2017-08-22] MEDS: HYDROmorphone 2 MG/ML SYRINGE IVP PRN (10:32)
[2017-08-22 11:47] VITALS: BP 159/84
[2017-08-22 12:07] LABS: GLUCOSE COMMENT 1 Juice/Food/D50 Given; GLUCOSE,POINT OF CARE 96 MG/DL (70-110)
[2017-08-22 18:08] LABS: GLUCOSE,POINT OF CARE 118 MG/DL (70-110)
== END 2017-08-22 18:30 | DRG 617 ==
LOC: EMS 02:43 → 6N 06:09
PROVIDERS: ADMIT Internal Medicine; ATTEND Internal Medicine
PROC: 0Y6Y0Z0 Detachment at Left 5th Toe, Complete, Open Approach (ICD-10-PCS; principal; 2017-08-15 09:00)
PROC: 02HV33Z Insertion of Infusion Device into Superior Vena Cava, Percutaneous Approach (ICD-10-PCS; 2017-08-20)
PROC: B548ZZA Ultrasonography of Superior Vena Cava, Guidance (ICD-10-PCS; 2017-08-20)
DX: E11.69 Type 2 diabetes mellitus with other specified complication (principal); L03.116 Cellulitis of left lower limb; N17.0 Acute kidney failure with tubular necrosis; M86.9 Osteomyelitis, unspecified; L02.612 Cutaneous abscess of left foot; M00.9 Pyogenic arthritis, unspecified; E11.22 Type 2 diabetes mellitus with diabetic chronic kidney disease; E11.621 Type 2 diabetes mellitus with foot ulcer; E78.5 Hyperlipidemia, unspecified; E11.51 Type 2 diabetes mellitus with diabetic peripheral angiopathy without gangrene; E11.42 Type 2 diabetes mellitus with diabetic polyneuropathy; E11.65 Type 2 diabetes mellitus with hyperglycemia; I12.9 Hypertensive chronic kidney disease with stage 1 through stage 4 chronic kidney disease, or unspecified chronic kidney disease; L97.529 Non-pressure chronic ulcer of other part of left foot with unspecified severity; M60.9 Myositis, unspecified; N18.3 Chronic kidney disease, stage 3 (moderate); Z86.14 Personal history of Methicillin resistant Staphylococcus aureus infection; Z89.431 Acquired absence of right foot; Z28.21 Immunization not carried out because of patient refusal
CPT/HCPCS: 36245; 36569; 73720; 76937; 81050; 82570; 82962; 83036; 83735; 84145; 84156; 85651; 86140; 87070; 87205; 88305; 88311; 93925; 96365; 96367; 96375; 97161; 97165; 99285; A9585; C9113; J1170; J1200; J1644; J1650; J1885; J2250; J2405; J2543; J2704; J3010; J3370; J3490; J7030; J7040; J7060

== ENCOUNTER 2018-03-29 16:25 | Emergency (ER) | payer BC, MEDICARE ==
[~2018-03-29] VITALS: Ht 177.8 cm; Wt 90.9 kg
[~2018-03-29 16:25] MED LIST changes: +GABA-531 PO; +HYDR-4061 PO; +LISI-660 PO; -METF500T4 PO; +METF500T6 PO; +SULF1TAB42 PO
[2018-03-29 16:27] VITALS: BP 134/84
[2018-03-29] MEDS ORDERED: 0.9% SODIUM CHLORIDE 10 ML SYRINGE IVP PRN (20:30)
[2018-03-29 20:38] LABS: BASOPHILS % (AUTO) 0.9 % (0.0-2.0); EOSINOPHILS % (AUTO) 4.3 % (1.0-6.0); HEMATOCRIT 41.9 % (41-53); HEMOGLOBIN 14.6 g/dL (13.5-17.5); LYMPHOCYTES # (AUTO) 1.6 K/uL (1.0-4.8); LYMPHOCYTES % (AUTO) 17.2 % (22.0-44.0); MEAN CORPUSCULAR HEMOGLOBIN 28.3 pg (26.0-34.0); MEAN CORPUSCULAR HGB CONC 34.9 G/dL (31.0-37.0); MEAN CORPUSCULAR VOLUME 81 fL (80-100); MONOCYTES # (AUTO) 0.5 K/uL (0.1-1.0); NEUTROPHILS # (AUTO) 6.7 K/uL (1.8-7.7); NEUTROPHILS % (AUTO) 72.6 % (40.0-70.0); PLATELET COUNT (AUTO) 309 K/uL (150-450); RED BLOOD CELL COUNT(AUTO) 5.16 MIL/uL (4.50-5.90); RED CELL DISTRIBUTION WIDTH 13.9 % (11.5-14.5)
[2018-03-29 20:43] LABS: GLUCOSE,POINT OF CARE 104 MG/DL (70-110)
[2018-03-29 20:49] LABS: CALCIUM, TOTAL 8.7 mg/dL (8.8-10.5); CREATININE 1.24 mg/dL (0.60-1.30); POTASSIUM 4.3 mmol/L (3.5-5.1)
[2018-03-29 20:57] LABS: LACTIC ACID 1.7 mmol/L (0.4-2.0)
[2018-03-29 21:03] LABS: ALBUMIN 3.8 g/dL (3.4-5.0); BILIRUBIN,TOTAL 0.4 mg/dL (0.1-1.0); TOTAL PROTEIN, SERUM 8.2 g/dL (6.4-8.2)
== END 2018-03-29 21:53 | disposition home or self-care (01) ==
LOC: EMS 16:25
DX: E11.621 Type 2 diabetes mellitus with foot ulcer (principal); L97.519 Non-pressure chronic ulcer of other part of right foot with unspecified severity; E78.00 Pure hypercholesterolemia, unspecified; I10 Essential (primary) hypertension
CPT/HCPCS: 83605; 87070; 87205; 93005; 99285

== ENCOUNTER 2018-03-29 22:01 | Inpatient (IN) | payer MEDICARE ==
[~2018-03-29] VITALS: Ht 175.3 cm; Wt 85.6 kg
[2018-03-29 22:30] VITALS: BP 152/88
[2018-03-29] MEDS ORDERED: HYDROCODONE/ACETAMINOPHEN 5-325 MG TABLET PO PRN (22:45)
[2018-03-29] MEDS ORDERED: INSULIN LISPRO 100 UNITS/ML SQ PRN ×2 (23:00)
[2018-03-29] MEDS ORDERED: GLUCAGON,HUMAN RECOMBINANT 1 MG VIAL IM PRN (23:00)
[2018-03-29] MEDS ORDERED: 0.9% SODIUM CHLORIDE 10 ML SYRINGE IVP PRN (23:00)
[2018-03-29] MEDS ORDERED: DEXTROSE 50%-WATER 25 GM/50 ML SYG IVP PRN (23:00)
[2018-03-29] MEDS ORDERED: ZOLPIDEM TARTRATE 5 MG TABLET PO PRN (23:00)
[2018-03-29] MEDS ORDERED: ACETAMINOPHEN 325 MG TABLET PO PRN (23:00)
[2018-03-29] MEDS ORDERED: ONDANSETRON HCL 4 MG/2 ML VIAL IVP PRN (23:00)
[2018-03-29] MEDS: HYDROCODONE/ACETAMINOPHEN 5-325 MG TABLET PO PRN (23:26)
[2018-03-29] MEDS ORDERED: VANCOMYCIN HCL 1.5 GM in DEXTROSE 5%-WATER 250 ML IV ONE (23:30)
[2018-03-29 23:36] LABS: BASOPHILS % (AUTO) 0.6 % (0.0-2.0); EOSINOPHILS % (AUTO) 4.3 % (1.0-6.0); HEMOGLOBIN 14.1 g/dL (13.5-17.5); LYMPHOCYTES # (AUTO) 1.6 K/uL (1.0-4.8); LYMPHOCYTES % (AUTO) 15.7 % (22.0-44.0); MEAN CORPUSCULAR HEMOGLOBIN 28.1 pg (26.0-34.0); MEAN CORPUSCULAR HGB CONC 34.3 G/dL (31.0-37.0); MEAN CORPUSCULAR VOLUME 82 fL (80-100); MONOCYTES # (AUTO) 0.6 K/uL (0.1-1.0); MONOCYTES % (AUTO) 6.3 % (2.0-9.0); NEUTROPHILS # (AUTO) 7.3 K/uL (1.8-7.7); NEUTROPHILS % (AUTO) 73.1 % (40.0-70.0); PLATELET COUNT (AUTO) 295 K/uL (150-450); RED CELL DISTRIBUTION WIDTH 13.9 % (11.5-14.5)
[2018-03-29 23:56] LABS: HEMOGLOBIN A1C 6.3 % (4.5-6.2)
[2018-03-29] MEDS ORDERED: SODIUM CHLORIDE 0.9% 500 ML IV ONE (23:57)
[2018-03-30] MEDS: CefTRIAXone SODIUM 1 GM in DEXTROSE 5%-WATER 10 ML IV SCH (00:02)
[2018-03-30 00:03] LABS: ANION GAP 7 mmol/L (8-16); CALCIUM, TOTAL 8.4 mg/dL (8.8-10.5); CARBON DIOXIDE 27 mmol/L (22-29); CHLORIDE 104 mmol/L (98-107); CREATININE 1.18 mg/dL (0.60-1.30); GLOMERULAR FILTR. RATE CALC > 60 mL/min (>60); GLUCOSE,RANDOM 97 mg/dL (70-110); POTASSIUM 4.3 mmol/L (3.5-5.1); SODIUM SERUM 138 mmol/L (136-145); UREA NITROGEN, BLOOD 18 mg/dL (7-18)
[2018-03-30] MEDS: HEPARIN SODIUM,PORCINE 5,000 UNITS/ML VIAL SQ SCH ×3 (00:07→16:11)
[2018-03-30 00:18] LABS: ALANINE AMINOTRANSFERASE 18 U/L (12-78); ALBUMIN 3.6 g/dL (3.4-5.0); ALKALINE PHOSPHATASE 100 U/L (46-116); ASPARTATE AMINOTRANSFERASE 13 U/L (15-37); BILIRUBIN,TOTAL 0.4 mg/dL (0.1-1.0); C-REACTIVE PROTEIN QUANT 0.44 mg/dL (0.00-0.30); THYROID STIMULATING HORMONE 2.23 uIU/mL (0.36-3.74); TOTAL PROTEIN, SERUM 7.7 g/dL (6.4-8.2)
[2018-03-30 03:34] LABS: GLUCOMETER DEV NAME(LOC) 6N 2D; GLUCOSE,POINT OF CARE 101 MG/DL (70-110)
[2018-03-30 04:51] VITALS: BP 157/90
[2018-03-30 05:36] LABS: BASOPHILS % (AUTO) 0.8 % (0.0-2.0); EOSINOPHILS % (AUTO) 4.1 % (1.0-6.0); HEMATOCRIT 42.3 % (41-53); LYMPHOCYTES # (AUTO) 1.4 K/uL (1.0-4.8); MEAN CORPUSCULAR HGB CONC 35.6 G/dL (31.0-37.0); MEAN CORPUSCULAR VOLUME 82 fL (80-100); MONOCYTES # (AUTO) 0.7 K/uL (0.1-1.0); MONOCYTES % (AUTO) 6.5 % (2.0-9.0); NEUTROPHILS # (AUTO) 7.8 K/uL (1.8-7.7); NEUTROPHILS % (AUTO) 75.6 % (40.0-70.0); PLATELET COUNT (AUTO) 282 K/uL (150-450); RED BLOOD CELL COUNT(AUTO) 5.18 MIL/uL (4.50-5.90); RED CELL DISTRIBUTION WIDTH 14.1 % (11.5-14.5)
[2018-03-30 05:47] LABS: ANION GAP 8 mmol/L (8-16); CALCIUM, TOTAL 8.8 mg/dL (8.8-10.5); CARBON DIOXIDE 27 mmol/L (22-29); CHLORIDE 103 mmol/L (98-107); CHOL/HDL RATIO 3.9 (4.2-7.3); CHOLESTEROL 152 mg/dL (131-200); CREATININE 1.18 mg/dL (0.60-1.30); GLOMERULAR FILTR. RATE CALC > 60 mL/min (>60); GLUCOSE,RANDOM 84 mg/dL (70-110); HDL CHOLESTEROL 39 mg/dL (40-60); LDL CHOL (CALC.) 76 mg/dL (0-130); POTASSIUM 4.6 mmol/L (3.5-5.1); SODIUM SERUM 138 mmol/L (136-145); TRIGLYCERIDES 186 mg/dL (15-150); UREA NITROGEN, BLOOD 17 mg/dL (7-18)
[2018-03-30 07:36] VITALS: BP 152/98
[2018-03-30] MEDS: HYDROCODONE/ACETAMINOPHEN 5-325 MG TABLET PO PRN ×3 (07:46→21:15)
[2018-03-30] MEDS: PANTOPRAZOLE SODIUM 40 MG/VIAL IVP SCH (07:46)
[2018-03-30] MEDS: VANCOMYCIN HCL 1 GM/D5% WATER 200 ML IV SCH ×2 (07:46→21:12)
[2018-03-30] MEDS: LISINOPRIL 5 MG TABLET PO SCH (07:47)
[2018-03-30] MEDS: GABAPENTIN 300 MG CAPSULE PO SCH ×3 (07:47→21:15)
[2018-03-30] MEDS: MetFORMIN HCL 500 MG TABLET PO SCH ×2 (07:47→17:26)
[2018-03-30 11:37] VITALS: BP_SYST 149; BP_SYST 150; BP_DIAS 83
[2018-03-30 12:38] LABS: GLUCOMETER DEV NAME(LOC) 6N 2D; GLUCOSE,POINT OF CARE 93 MG/DL (70-110)
[2018-03-30 16:00] VITALS: BP 155/87
[2018-03-30] MEDS: MAGNESIUM OXIDE 400 MG TABLET PO PRN (16:12)
[2018-03-30] MEDS ORDERED: POTASSIUM CHL 10 MEQ/WATER 50 ML IV PRN (16:15)
[2018-03-30] MEDS ORDERED: POTASSIUM CHLORIDE 20 MEQ ER TABLET PO PRN (16:15)
[2018-03-30] MEDS ORDERED: MAGNESIUM SULFATE 2 GM/WATER 50 ML IV PRN (16:15)
[2018-03-30] MEDS ORDERED: MAGNESIUM SULFATE 4 GM/WATER 100 ML IV PRN (16:15)
[2018-03-30 19:29] LABS: GLUCOMETER DEV NAME(LOC) 6N 1E; GLUCOSE,POINT OF CARE 84 MG/DL (70-110)
[2018-03-30 19:38] LABS: GLUCOMETER DEV NAME(LOC) 6N 2D; GLUCOSE,POINT OF CARE 88 MG/DL (70-110)
[2018-03-30 20:09] VITALS: BP 135/74
[2018-03-30 23:24] LABS: GLUCOMETER DEV NAME(LOC) 6N 1E; GLUCOSE,POINT OF CARE 133 MG/DL (70-110)
[2018-03-30 23:45] VITALS: BP 141/87
[2018-03-31] MEDS: CefTRIAXone SODIUM 1 GM in DEXTROSE 5%-WATER 10 ML IV SCH (00:15)
[2018-03-31] MEDS: HEPARIN SODIUM,PORCINE 5,000 UNITS/ML VIAL SQ SCH ×3 (00:16→17:38)
[2018-03-31 05:14] VITALS: BP 137/91
[2018-03-31 05:43] LABS: BASOPHILS % (AUTO) 1.1 % (0.0-2.0); EOSINOPHILS % (AUTO) 7.9 % (1.0-6.0); HEMATOCRIT 38.8 % (41-53); HEMOGLOBIN 13.7 g/dL (13.5-17.5); LYMPHOCYTES # (AUTO) 0.9 K/uL (1.0-4.8); LYMPHOCYTES % (AUTO) 15.3 % (22.0-44.0); MEAN CORPUSCULAR HEMOGLOBIN 28.8 pg (26.0-34.0); MEAN CORPUSCULAR HGB CONC 35.2 G/dL (31.0-37.0); MEAN CORPUSCULAR VOLUME 82 fL (80-100); MONOCYTES # (AUTO) 0.5 K/uL (0.1-1.0); NEUTROPHILS # (AUTO) 4.1 K/uL (1.8-7.7); NEUTROPHILS % (AUTO) 67.7 % (40.0-70.0); PLATELET COUNT (AUTO) 233 K/uL (150-450); RED BLOOD CELL COUNT(AUTO) 4.74 MIL/uL (4.50-5.90)
[2018-03-31 06:12] LABS: CALCIUM, TOTAL 8.3 mg/dL (8.8-10.5); CREATININE 1.28 mg/dL (0.60-1.30); MAGNESIUM 1.7 mg/dL (1.80-2.40); POTASSIUM 4.2 mmol/L (3.5-5.1)
[2018-03-31] MEDS: HYDROCODONE/ACETAMINOPHEN 5-325 MG TABLET PO PRN ×2 (06:28→10:11)
[2018-03-31 06:44] LABS: GLUCOMETER DEV NAME(LOC) 6N 1E; GLUCOSE,POINT OF CARE 95 MG/DL (70-110)
[2018-03-31 07:10] VITALS: BP 153/83
[2018-03-31] MEDS ORDERED: GADOBUTROL 1 MMOL/ML 10 ML VIAL IVP ONE (08:25)
[2018-03-31] MEDS: MetFORMIN HCL 500 MG TABLET PO SCH ×2 (10:10→17:38)
[2018-03-31] MEDS: VANCOMYCIN HCL 1 GM/D5% WATER 200 ML IV SCH (10:10)
[2018-03-31] MEDS: PANTOPRAZOLE SODIUM 40 MG/VIAL IVP SCH (10:11)
[2018-03-31] MEDS: GABAPENTIN 300 MG CAPSULE PO SCH ×3 (10:11→20:18)
[2018-03-31] MEDS: MAGNESIUM OXIDE 400 MG TABLET PO PRN ×2 (10:11→18:32)
[2018-03-31] MEDS: MULTIVITAMINS WITH MINERALS, THERAPEUTIC TABLET PO SCH (10:11)
[2018-03-31] MEDS: LISINOPRIL 5 MG TABLET PO SCH (10:11)
[2018-03-31 12:00] VITALS: BP 149/86
[2018-03-31 16:40] VITALS: BP 139/58
[2018-03-31 18:09] LABS: GLUCOMETER DEV NAME(LOC) 6N 2D; GLUCOSE,POINT OF CARE 158 MG/DL (70-110)
[2018-03-31 18:09] LABS: GLUCOMETER DEV NAME(LOC) 6N 2D; GLUCOSE,POINT OF CARE 129 MG/DL (70-110)
[2018-03-31 19:41] VITALS: BP 141/85
[2018-03-31] MEDS: VANCOMYCIN HCL 750 MG in DEXTROSE 5%-WATER 250 ML IV SCH (20:17)
[2018-03-31 23:00] VITALS: BP 144/77
[2018-03-31 23:29] LABS: GLUCOMETER DEV NAME(LOC) 6N 1E; GLUCOSE,POINT OF CARE 106 MG/DL (70-110)
[2018-04-01] MEDS: CefTRIAXone SODIUM 1 GM in DEXTROSE 5%-WATER 10 ML IV SCH (00:08)
[2018-04-01] MEDS: HYDROCODONE/ACETAMINOPHEN 5-325 MG TABLET PO PRN ×2 (00:16→05:16)
[2018-04-01] MEDS: MAGNESIUM OXIDE 400 MG TABLET PO PRN ×2 (00:50→05:17)
[2018-04-01 04:00] VITALS: BP 153/82
[2018-04-01 06:00] LABS: BASOPHILS % (AUTO) 0.8 % (0.0-2.0); HEMOGLOBIN 14.3 g/dL (13.5-17.5); LYMPHOCYTES # (AUTO) 1.1 K/uL (1.0-4.8); LYMPHOCYTES % (AUTO) 14.6 % (22.0-44.0); MEAN CORPUSCULAR HEMOGLOBIN 28.8 pg (26.0-34.0); MEAN CORPUSCULAR HGB CONC 34.9 G/dL (31.0-37.0); MEAN CORPUSCULAR VOLUME 82 fL (80-100); MONOCYTES # (AUTO) 0.5 K/uL (0.1-1.0); NEUTROPHILS # (AUTO) 5.4 K/uL (1.8-7.7); NEUTROPHILS % (AUTO) 72.6 % (40.0-70.0); PLATELET COUNT (AUTO) 239 K/uL (150-450); RED BLOOD CELL COUNT(AUTO) 4.98 MIL/uL (4.50-5.90); RED CELL DISTRIBUTION WIDTH 14.1 % (11.5-14.5)
[2018-04-01 06:31] LABS: CREATININE 1.27 mg/dL (0.60-1.30); MAGNESIUM 1.8 mg/dL (1.80-2.40); POTASSIUM 4.9 mmol/L (3.5-5.1)
[2018-04-01 06:39] LABS: GLUCOMETER DEV NAME(LOC) 6N 1E; GLUCOSE,POINT OF CARE 113 MG/DL (70-110)
[2018-04-01 07:37] VITALS: BP 140/87
[2018-04-01] MEDS: HEPARIN SODIUM,PORCINE 5,000 UNITS/ML VIAL SQ SCH ×3 (08:46→16:00)
[2018-04-01] MEDS: PANTOPRAZOLE SODIUM 40 MG/VIAL IVP SCH (08:46)
[2018-04-01] MEDS: MetFORMIN HCL 500 MG TABLET PO SCH ×2 (08:46→17:01)
[2018-04-01] MEDS: GABAPENTIN 300 MG CAPSULE PO SCH ×2 (08:46→17:01)
[2018-04-01] MEDS: MULTIVITAMINS WITH MINERALS, THERAPEUTIC TABLET PO SCH (08:46)
[2018-04-01] MEDS: LISINOPRIL 5 MG TABLET PO SCH (08:46)
[2018-04-01] MEDS: VANCOMYCIN HCL 750 MG in DEXTROSE 5%-WATER 250 ML IV SCH (08:47)
[2018-04-01] MEDS ORDERED: SODIUM CHLORIDE 0.9% 500 ML IV ONE (10:48)
[2018-04-01 10:50] LABS: PROTHROMBIN TIME 10.4 SEC (9.4-11.6)
[2018-04-01 11:30] VITALS: BP 149/89
[2018-04-01] MEDS ORDERED: HEPARIN SODIUM 1000 UNITS/NS 500 ML ONE (14:11)
[2018-04-01 16:00] VITALS: BP 125/69
[2018-04-01 20:43] LABS: GLUCOMETER DEV NAME(LOC) 6N 1E; GLUCOSE,POINT OF CARE 108 MG/DL (70-110)
== END 2018-04-01 17:30 | disposition home health service (06) | DRG 638 ==
LOC: 6N 22:11
PROVIDERS: ADMIT Internal Medicine; ATTEND Internal Medicine
PROC: 02HV33Z Insertion of Infusion Device into Superior Vena Cava, Percutaneous Approach (ICD-10-PCS; principal; 2018-04-01)
PROC: B548ZZA Ultrasonography of Superior Vena Cava, Guidance (ICD-10-PCS; 2018-04-01)
PROC: B5181ZA Fluoroscopy of Superior Vena Cava using Low Osmolar Contrast, Guidance (ICD-10-PCS; 2018-04-01)
DX: E11.621 Type 2 diabetes mellitus with foot ulcer (principal); L97.419 Non-pressure chronic ulcer of right heel and midfoot with unspecified severity; E11.51 Type 2 diabetes mellitus with diabetic peripheral angiopathy without gangrene; J34.89 Other specified disorders of nose and nasal sinuses; R13.10 Dysphagia, unspecified; E78.00 Pure hypercholesterolemia, unspecified; I10 Essential (primary) hypertension; Z79.899 Other long term (current) drug therapy; Z79.84 Long term (current) use of oral hypoglycemic drugs
CPT/HCPCS: 36245; 36569; 73720; 76000; 83036; 83605; 83735; 84443; 85651; 86140; 87070; 87081; 87205; 93005; 93925; A9585; C9113; J0696; J1644; J3370; J7040; J7060

== ENCOUNTER → 2018-04-07 | Outpatient (CLI) | payer MEDICARE ==
[~2018-04-07] VITALS: Ht 175.3 cm; Wt 87.5 kg
[~2018-04-07] MED LIST changes: +ACET-784 PO; +AMIN30LI28 PO; +BISA10S PR; +CEFX1I IV; +INSU100I15 SQ; +LACT1CAP70 PO; +MAGN400O52 PO; +MULT-959 PO; +NA P133E35 RC; +PANT40TA25 PO
[2018-04-07 10:28] VITALS: BP 118/81
== END | disposition home or self-care (01) ==
LOC: HBOWC 09:41
PROVIDERS: ATTEND Nurse Practitioner Adult Health
DX: E11.621 Type 2 diabetes mellitus with foot ulcer (principal); L97.512 Non-pressure chronic ulcer of other part of right foot with fat layer exposed; E11.51 Type 2 diabetes mellitus with diabetic peripheral angiopathy without gangrene; E78.5 Hyperlipidemia, unspecified; I10 Essential (primary) hypertension; E78.00 Pure hypercholesterolemia, unspecified
CPT/HCPCS: 11042

== ENCOUNTER → 2018-04-14 | Outpatient (CLI) | payer MEDICARE ==
[~2018-04-14] MED LIST changes: -SULF1TAB42 PO
[2018-04-14 09:25] VITALS: BP 127/79
== END | disposition home or self-care (01) ==
LOC: HBOWC 08:26
PROVIDERS: ATTEND Nurse Practitioner Adult Health
DX: E11.621 Type 2 diabetes mellitus with foot ulcer (principal); L97.512 Non-pressure chronic ulcer of other part of right foot with fat layer exposed; E11.51 Type 2 diabetes mellitus with diabetic peripheral angiopathy without gangrene; E78.5 Hyperlipidemia, unspecified; I10 Essential (primary) hypertension; E78.00 Pure hypercholesterolemia, unspecified

== ENCOUNTER 2025-05-10 12:26 | Emergency (ER) | payer MEDICARE, OTHER ==
[~2025-05-10] VITALS: Ht 177.8 cm; Wt 76.4 kg
[~2025-05-10 12:26] MED LIST changes: -BISA10S PR; +BISA10SU11 PR; +GABA-1181 PO; -GABA-531 PO; -LISI-660 PO; +LISI-892 PO; +METF-1211 PO; -METF500T6 PO; -NA P133E35 RC; -PANT40TA25 PO; +PANT40TA54 PO; +SODI133E14 RC
[2025-05-10 12:31] VITALS: TEMP 98.2
[2025-05-10 12:51] LABS: GLUCOMETER DEV NAME(LOC) ERT.7; GLUCOSE,POINT OF CARE 110 MG/DL (70-110)
[2025-05-10 13:08] LABS: CALCIUM, TOTAL 9.0 mg/dL (8.8-10.5); CREATININE 1.07 mg/dL (0.60-1.30); GLOMERULAR FILTR. RATE CALC > 60 mL/min (>60); GLUCOSE,RANDOM 117 mg/dL (70-110); PLATELET COUNT (AUTO) 228 K/uL (150-450); RED BLOOD CELL COUNT(AUTO) 5.13 MIL/uL (4.50-5.90); RED CELL DISTRIBUTION WIDTH 14.0 % (11.5-14.5); SODIUM SERUM 140 mmol/L (136-145); UREA NITROGEN, BLOOD 14 mg/dL (7-18); WHITE BLOOD COUNT (AUTO) 8.3 K/uL (4.5-11.0)
[2025-05-10] MEDS: ACETAMINOPHEN 500 MG TABLET PO ONE (15:15)
[2025-05-10] MEDS: MECLIZINE HCL 25 MG TABLET PO ONE (15:15)
[2025-05-10] MEDS: ONDANSETRON HCL 4 MG/2 ML VIAL IVP ONE (15:16)
[2025-05-10] MEDS: SODIUM CHLORIDE 0.9% 1,000 ML IV ONE (15:16)
[2025-05-10] MEDS: POTASSIUM CHLORIDE 20 MEQ ER TABLET PO ONE (15:16)
[2025-05-10 16:24] VITALS: BP 137/82; PULSE 59; RESP 15; O2SAT 98
[2025-05-10 17:16] LABS: APPEARANCE,URINE CLEAR (CLEAR); GLUCOSE, URINE (UA) NEGATIVE (NEGATIVE); LEUKOCYTE ESTERASE ,URINE NEGATIVE (NEGATIVE); NITRATE,URINE NEGATIVE (NEGATIVE); OCCULT BLOOD,URINE NEGATIVE (NEGATIVE); SPECIFIC GRAVITIY, URINE 1.026 (1.003-1.030)
== END 2025-05-10 17:04 | disposition short-term general hospital (02) ==
LOC: EMS 12:28
DX: S80.812A Abrasion, left lower leg, initial encounter (principal); E11.9 Type 2 diabetes mellitus without complications; E78.00 Pure hypercholesterolemia, unspecified; I10 Essential (primary) hypertension; R29.6 Repeated falls; W19.XXXA Unspecified fall, initial encounter; Y93.89 Activity, other specified; Y92.89 Other specified places as the place of occurrence of the external cause; Y99.8 Other external cause status
CPT/HCPCS: 99285; 96374; 71045; 96361; 80048; 81003; 82962; 85025; 36415; 93005; J2405; J7030

== ENCOUNTER 2025-07-08 08:46 | Inpatient (IN) | payer MEDICARE, OTHER ==
[~2025-07-08] VITALS: Ht 177.8 cm; Wt 68.7 kg
[2025-07-08 09:32] LABS: PLATELET COUNT (AUTO) 444 K/uL (150-450); RED BLOOD CELL COUNT(AUTO) 4.06 MIL/uL (4.50-5.90); RED CELL DISTRIBUTION WIDTH 15.4 % (11.5-14.5); WHITE BLOOD COUNT (AUTO) 17.5 K/uL (4.5-11.0)
[2025-07-08 09:43] LABS: CALCIUM, TOTAL 9.1 mg/dL (8.8-10.5); CREATININE 1.23 mg/dL (0.60-1.30); GLOMERULAR FILTR. RATE CALC 58 mL/min (>60); GLUCOSE,RANDOM 155 mg/dL (70-110); SODIUM SERUM 135 mmol/L (136-145); UREA NITROGEN, BLOOD 32 mg/dL (7-18)
[2025-07-08 09:53] LABS: TROPONIN I-HIGH SENSITIVITY 15 ng/L (<76)
[2025-07-08] MEDS: SODIUM CHLORIDE 0.9% 2,050 ML IV ONE (11:04)
[2025-07-08] MEDS ORDERED: 0.9% SODIUM CHLORIDE 10 ML SYRINGE IVP PRN (13:00)
[2025-07-08] MEDS ORDERED: DEXTROSE 50%-WATER 25 GM/50 ML SYRINGE IVP PRN ×2 (13:00→21:45)
[2025-07-08 13:26] LABS: LACTIC ACID 1.9 mmol/L (0.4-2.0)
[2025-07-08] MEDS ORDERED: IOHEXOL 350 MG/ML 100 ML VIAL ONE (13:35)
[2025-07-08] MEDS ORDERED: 0.9% SODIUM CHLORIDE 10 ML SYRINGE IVP ONE (13:35)
[2025-07-08] MEDS ORDERED: SODIUM CHLORIDE 0.9% 100 ML ONE (13:36)
[2025-07-08 13:59] LABS: CALCIUM, TOTAL 8.4 mg/dL (8.8-10.5); CREATININE 1.03 mg/dL (0.60-1.30); GLOMERULAR FILTR. RATE CALC > 60 mL/min (>60); GLUCOSE,RANDOM 109 mg/dL (70-110); SODIUM SERUM 137 mmol/L (136-145); UREA NITROGEN, BLOOD 27 mg/dL (7-18)
[2025-07-08 14:03] LABS: ASPARTATE AMINOTRANSFERASE 59 U/L (15-37); LACTATE DEHYDROGENASE 151 U/L (85-227); TOTAL PROTEIN, SERUM 7.1 g/dL (6.4-8.2)
[2025-07-08] MEDS: CefTRIAXone 1 GM/DEXTROSE 50 ML IV SCH (14:20)
[2025-07-08 15:41] VITALS: BP 120/69; PULSE 83; RESP 18; TEMP 98.1; O2SAT 96
[2025-07-08] MEDS: HEPARIN SODIUM,PORCINE 5,000 UNITS/ML VIAL SQ SCH (17:53)
[2025-07-08 18:31] LABS: GLUCOMETER DEV NAME(LOC) 5S.2D; GLUCOSE,POINT OF CARE 98 MG/DL (70-110)
[2025-07-08 19:38] VITALS: BP 104/62; PULSE 81; RESP 18; TEMP 98.4; O2SAT 99
[2025-07-08] MEDS: INSULIN LISPRO 100 UNITS/ML SQ PRN (20:40)
[2025-07-08] MEDS: DOCUSATE SODIUM 100 MG CAPSULE PO SCH (20:50)
[2025-07-08] MEDS: SODIUM PHOSPHATE,MONO-DIBASIC 133 ML ENEMA PR ONE (21:45)
[2025-07-08] MEDS ORDERED: INSULIN LISPRO 100 UNITS/ML SQ PRN (21:45)
[2025-07-09] VITALS: BP 116/63; PULSE 89; RESP 17; TEMP 98.2; O2SAT 98
[2025-07-09 00:08] LABS: APPEARANCE,URINE CLEAR (CLEAR); GLUCOSE, URINE (UA) NEGATIVE (NEGATIVE); LEUKOCYTE ESTERASE ,URINE NEGATIVE (NEGATIVE); NITRATE,URINE NEGATIVE (NEGATIVE); OCCULT BLOOD,URINE NEGATIVE (NEGATIVE); SPECIFIC GRAVITIY, URINE 1.050 (1.003-1.030)
[2025-07-09 04:35] VITALS: RESP 17
[2025-07-09 05:26] LABS: GLUCOMETER DEV NAME(LOC) 5S.2D; GLUCOSE,POINT OF CARE 143 MG/DL (70-110)
[2025-07-09 08:16] VITALS: BP 108/71; PULSE 74; RESP 18; TEMP 98; O2SAT 97
[2025-07-09 11:18] LABS: PLATELET COUNT (AUTO) 421 K/uL (150-450); RED BLOOD CELL COUNT(AUTO) 3.56 MIL/uL (4.50-5.90); RED CELL DISTRIBUTION WIDTH 15.1 % (11.5-14.5); WHITE BLOOD COUNT (AUTO) 11.5 K/uL (4.5-11.0)
[2025-07-09 12:33] VITALS: BP 120/67; PULSE 70; RESP 19; TEMP 98.4; O2SAT 99
[2025-07-09] MEDS ORDERED: SODIUM CHLORIDE 0.9% 500 ML IV ONE (13:05)
[2025-07-09 13:27] LABS: GLUCOMETER DEV NAME(LOC) 5S.2D; GLUCOSE,POINT OF CARE 144 MG/DL (70-110)
[2025-07-09] MEDS ORDERED: MAGNESIUM SULFATE 2 GM/WATER 50 ML IV PRN (14:00)
[2025-07-09] MEDS ORDERED: MAGNESIUM SULFATE 4 GM/WATER 100 ML IV PRN (14:00)
[2025-07-09 15:21] VITALS: BP 116/58; PULSE 78; RESP 19; TEMP 98.8; O2SAT 98
[2025-07-09] MEDS: MAGNESIUM OXIDE 400 MG TABLET PO PRN (15:37)
[2025-07-09] MEDS: VANCOMYCIN 1.75GM/WATER(PEG) 350 ML IV ONE (15:38)
[2025-07-09 20:15] VITALS: BP 117/74; PULSE 83; RESP 18; TEMP 98.7; O2SAT 100
[2025-07-09 22:26] LABS: GLUCOMETER DEV NAME(LOC) 5S.2D; GLUCOSE,POINT OF CARE 111 MG/DL (70-110)
[2025-07-09 22:26] LABS: GLUCOMETER DEV NAME(LOC) 5S.2D; GLUCOSE,POINT OF CARE 127 MG/DL (70-110)
[2025-07-10 00:25] VITALS: BP 142/83; PULSE 89; RESP 18; TEMP 98.2; O2SAT 98
[2025-07-10 04:37] VITALS: BP 139/88; PULSE 77; RESP 16; O2SAT 97
[2025-07-10 08:00] VITALS: BP 143/76; PULSE 74; RESP 19; TEMP 98.1; O2SAT 97
[2025-07-10] MEDS: VANCOMYCIN 1GM/WATER(PEG/NADA) 200 ML IV SCH (08:00)
[2025-07-10 11:55] LABS: GLUCOMETER DEV NAME(LOC) 6S.2; GLUCOSE,POINT OF CARE 98 MG/DL (70-110)
[2025-07-10 13:56] LABS: GLUCOMETER DEV NAME(LOC) 4E.2; GLUCOSE,POINT OF CARE 86 MG/DL (70-110)
[2025-07-10] MEDS ORDERED: GADOTERATE MEGLUMINE 10 MMOL/20 ML VIAL IVP ONE (15:55)
[2025-07-10 20:10] VITALS: BP 125/86; PULSE 73; RESP 18; TEMP 98; O2SAT 99
[2025-07-10 21:40] LABS: CALCIUM, TOTAL 8.5 mg/dL (8.8-10.5); CREATININE 0.94 mg/dL (0.60-1.30); GLOMERULAR FILTR. RATE CALC > 60 mL/min (>60); GLUCOSE,RANDOM 97 mg/dL (70-110); SODIUM SERUM 138 mmol/L (136-145); UREA NITROGEN, BLOOD 18 mg/dL (7-18)
[2025-07-10 23:11] LABS: GLUCOMETER DEV NAME(LOC) 6S.2; GLUCOSE,POINT OF CARE 203 MG/DL (70-110)
[2025-07-10 23:11] LABS: GLUCOMETER DEV NAME(LOC) 6S.2; GLUCOSE,POINT OF CARE 139 MG/DL (70-110)
[2025-07-11] MEDS: ACETAMINOPHEN 325 MG TABLET PO PRN (00:41)
[2025-07-11 04:00] VITALS: BP 131/89; PULSE 75; RESP 18; TEMP 98.1; O2SAT 98
[2025-07-11 09:16] VITALS: BP 138/74; PULSE 75; RESP 18; TEMP 98.1; O2SAT 99
[2025-07-11 10:53] LABS: CALCIUM, TOTAL 8.8 mg/dL (8.8-10.5); CREATININE 0.88 mg/dL (0.60-1.30); GLOMERULAR FILTR. RATE CALC > 60 mL/min (>60); GLUCOSE,RANDOM 97 mg/dL (70-110); SODIUM SERUM 136 mmol/L (136-145); UREA NITROGEN, BLOOD 14 mg/dL (7-18)
[2025-07-11] MEDS: SODIUM CHLORIDE 0.45% 1,000 ML IV SCH (11:50)
[2025-07-11] MEDS: MORPHINE SULFATE 4 MG/ML SYRINGE IVP PRN (13:00)
[2025-07-11] MEDS: POTASSIUM CHLORIDE 20 MEQ ER TABLET PO PRN (16:11)
[2025-07-11] MEDS ORDERED: POTASSIUM CHL 10 MEQ/WATER 50 ML IV PRN (16:15)
[2025-07-11 18:56] LABS: GLUCOMETER DEV NAME(LOC) 6S.2; GLUCOSE,POINT OF CARE 89 MG/DL (70-110)
[2025-07-11 18:56] LABS: GLUCOMETER DEV NAME(LOC) 6S.2; GLUCOSE,POINT OF CARE 109 MG/DL (70-110)
[2025-07-11 20:00] VITALS: BP 119/69; PULSE 83; RESP 18; TEMP 97.5; O2SAT 100
[2025-07-12 01:01] LABS: GLUCOMETER DEV NAME(LOC) 6S.2; GLUCOSE,POINT OF CARE 122 MG/DL (70-110)
[2025-07-12 01:01] LABS: GLUCOMETER DEV NAME(LOC) 4E.2; GLUCOSE,POINT OF CARE 94 MG/DL (70-110)
[2025-07-12 04:00] VITALS: BP 127/82; PULSE 62; RESP 18; TEMP 98.6; O2SAT 100
[2025-07-12] MEDS: CHLORHEXIDINE GLUCONATE 2% TOWELETTE [2'S/6'S] TP ONE (04:43)
[2025-07-12] MEDS: ETHYL ALCOHOL 62% ANTISEPTIC NASAL SANITIZER 0.6 ML AMPUL NASAL ONE (04:43)
[2025-07-12] MEDS: ONDANSETRON HCL 4 MG/2 ML VIAL IVP PRN (05:52)
[2025-07-12] MEDS ORDERED: LIDOCAINE/PF 1% 30 ML VIAL ONE (06:45)
[2025-07-12 06:55] LABS: CALCIUM, TOTAL 8.7 mg/dL (8.8-10.5); CREATININE 0.81 mg/dL (0.60-1.30); GLOMERULAR FILTR. RATE CALC > 60 mL/min (>60); GLUCOSE,RANDOM 93 mg/dL (70-110); SODIUM SERUM 136 mmol/L (136-145); UREA NITROGEN, BLOOD 17 mg/dL (7-18)
[2025-07-12] MEDS: BUPIVACAINE HCL/PF 0.5% 30 ML VIAL ONE (07:09)
[2025-07-12] MEDS: VANCOMYCIN 750 MG/WATER(PEG) 150 ML IV SCH (08:58)
[2025-07-12 09:27] VITALS: BP 129/59; PULSE 73; RESP 18; TEMP 97.9; O2SAT 100
[2025-07-12 10:06] LABS: GLUCOMETER DEV NAME(LOC) 4E.2; GLUCOSE,POINT OF CARE 94 MG/DL (70-110)
[2025-07-12] MEDS ORDERED: FentaNYL CITRATE PF 100 MCG/2 ML VIAL ONE (12:00)
[2025-07-12] MEDS ORDERED: MIDAZOLAM HCL 2 MG/2 ML VIAL ONE (12:00)
[2025-07-12 12:55] LABS: PLATELET COUNT (AUTO) 449 K/uL (150-450); RED BLOOD CELL COUNT(AUTO) 3.94 MIL/uL (4.50-5.90); RED CELL DISTRIBUTION WIDTH 15.4 % (11.5-14.5); WHITE BLOOD COUNT (AUTO) 10.9 K/uL (4.5-11.0)
[2025-07-12] MEDS: MAGNESIUM OXIDE 400 MG TABLET PO ONE (13:19)
[2025-07-12 16:23] VITALS: BP 120/71; PULSE 75; RESP 18; TEMP 97.9; O2SAT 100
[2025-07-12 17:45] LABS: GLUCOMETER DEV NAME(LOC) 4E.2; GLUCOSE,POINT OF CARE 74 MG/DL (70-110)
[2025-07-12] MEDS ORDERED: PROPOFOL 1% ISO-OSM 1000 MG/100 ML BOTTLE ONE (17:48)
[2025-07-12] MEDS ORDERED: PROPOFOL 1% 20 ML VIAL IVP ONE (17:48)
[2025-07-12] MEDS ORDERED: ONDANSETRON HCL 4 MG/2 ML VIAL ONE (17:48)
[2025-07-12 17:50] LABS: GLUCOMETER DEV NAME(LOC) 6S.2; GLUCOSE,POINT OF CARE 97 MG/DL (70-110)
[2025-07-12] MEDS ORDERED: FentaNYL CITRATE PF 100 MCG/2 ML VIAL IM ONE (18:49)
[2025-07-12] MEDS ORDERED: MIDAZOLAM HCL 2 MG/2 ML VIAL IVP ONE (18:49)
== END 2025-07-12 18:50 | DRG 356 ==
LOC: EMS 08:46 → EDH 12:57 → 5N 15:23 → 6S 07-10 02:57
PROVIDERS: ADMIT Internal Medicine; ATTEND Internal Medicine
PROC: 0JBR0ZZ Excision of Left Foot Subcutaneous Tissue and Fascia, Open Approach (ICD-10-PCS; principal; 2025-07-12 07:05)
DX: K52.89 Other specified noninfective gastroenteritis and colitis (principal); G93.41 Metabolic encephalopathy; M86.172 Other acute osteomyelitis, left ankle and foot; J98.11 Atelectasis; Z59.00 Homelessness unspecified; E11.69 Type 2 diabetes mellitus with other specified complication; E11.621 Type 2 diabetes mellitus with foot ulcer; E83.42 Hypomagnesemia; I10 Essential (primary) hypertension; N28.1 Cyst of kidney, acquired; K56.41 Fecal impaction; N43.3 Hydrocele, unspecified; K21.9 Gastro-esophageal reflux disease without esophagitis; E86.0 Dehydration; E78.00 Pure hypercholesterolemia, unspecified; L97.529 Non-pressure chronic ulcer of other part of left foot with unspecified severity; Z79.4 Long term (current) use of insulin
CPT/HCPCS: 71045; 71260; 72193; 73720; 74160; 80048; 80053; 80202; 81003; 82040; 82962; 83605; 83615; 83690; 83735; 84132; 84145; 84484; 85025; 85730; 87040; 87070; 87081; 87186; 87205; 93005; 96360; 99285; J0696; J1644; J2250; J2270; J2405; J2704; J3010; J3490; J7040; J7050; 36415-L1; 36415-TC